=== PATIENT | female | born 1945 | race Caucasian/White ===

== ENCOUNTER 2021-04-03 16:33 | Emergency (ER) | payer BC, MEDICARE, SELFPAY ==
[2021-04-03] VITALS (7 sets, daily range): BP systolic 40–133; BP diastolic 32–67; PULSE 27–106; RESP 0–21; TEMP 36.6; O2SAT 29–99
--- NOTE | ~2021-04-03 | XR_ITS ---
XR chest 1V portable 04/03/2021 17:29 Indication: Stage IV breast cancer. Low oxygen saturation. Altered mental status. Procedure: AP portable chest Comparison: No prior studies for comparison. Findings: There are multiple left lung masses, consistent with metastatic disease. There is elevated right diaphragm. There is bilateral airspace disease which may represent pneumonia or edema. Portacat heter tip in the SVC. Small pleural effusions. Impression: 1: Diffuse bilateral airspace disease which may represent pneumonia or edema. 2: Metastatic disease, presumably secondary to known breast cancer. 3: Small pleural effusions. Elevated right diaphragm. Reviewed, dictated and finalized at location A. Impression: 1: Diffuse bilateral airspace disease which may represent pneumonia or edema. 2: Metastatic disease, presumably secondary to known breast cancer. 3: Small pleural effusions. Elevated right diaphragm.
--- NOTE | 2021-04-03 16:59 | ECG_ITS ---
Measurements Intervals [place] Rate: 104 P: 31 [place]: 136 QRS: 56 QRSD: 88 T: 32 QT: 333 QTc: 440 Interpretive Statements SINUS TACHYCARDIA LOW QRS VOLTAGE IN LIMB LEADS BORDERLINE ST ABNORMALITY- ANT/INF LEADS BORDERLINE ECG Electronically Signed On 04-04-2021 6:22:22 CDT by Will Snider D.O.
[2021-04-03] MEDS: SODIUM CHLORIDE 0.9% IV 1,000 ML 999 ML IV CONT (18:26)
--- NOTE | 2021-04-03 18:54 | ED.AMS ---
HPI - Altered Mental Status General Chief Complaint: Altered Mental Status Stated Complaint: AMS Time Seen by Provider: 04/03/21 16:49 History of Present Illness HPI narrative: Patient is a 75-year-old female who presents ER after her realize she had not gotten up out of bed today. He reports that she has not been eating or doing anything for the last 3 days. Patient found to be hypoxic by EMS and placed on oxygen. The patient is alert and oriented she cannot give any history about what has been occurring or how she feels. She does report that she receives her care through [facility] in [place]. Patient has been suffering from metastatic breast cancer for the last 4 to 5 years and is on palliative chemotherapy. Related Data Allergies Allergy/AdvReac Type Severity Reaction Status Date / Time No Known Allergies Allergy Verified 04/03/21 18:53 Review of Systems Review of Systems: ROS unobtainable: Yes unobtainable due to medical condition PMFSH Past Medical History Medical History (Updated 04/03/21 @ 20:25 by Ino Puckett MD) Breast cancer History of hypertension Surgical History Surgical History (Updated 04/03/21 @ 20:23 by Ino Puckett MD) Port-A-Cath in place Exam Narrative: GENERAL: Chronically ill-appearing, well-nourished, and in mild distress. HEAD: Normocephalic, atraumatic. EYES: PERRL and EOMI. ENT: Dry mucous membranes. CHEST: Clear to auscultation. No respiratory distress. Large cavitation left chest wall superior to the breast without erythema or drainage. Packing present. HEART: Regular rate and rhythm. Normal peripheral pulses. ABDOMEN: Soft, nontender, nondistended. EXTREMITIES: Normal range of motion. No edema. SKIN: Warm, dry, no rash. NEURO: Slurred speech somnolent however alert and oriented x3. Course Reevaluation(s) Reevaluation #1: Patient status declining. She is no longer awake or alert and she is minimally responsive to sternal rub. Breathing is apneic. I have had a discussion with the patient's son, spouse, and [id number]. The decision has been made to transition the patient to comfort focused therapy and they are aware that patient will likely have rapid deterioration afterwards. Patient will be given some morphine to help with air hunger at this time. Date: 04/03/21 Time: 18:55 Reevaluation #2: Patient pronounced as having at 1953. Family at bedside. Will contact PCP. Date: 04/03/21 Time: 20:13 Reevaluation #3: Contacted the physician national sales associate for Dr. Barber, they will sign the certificate. Date: 04/03/21 Time: 21:04 Vital Signs Vital signs: Vital Signs Temperature 97.8 F 04/03/21 17:04 Pulse Rate 106 H 04/03/21 17:04 Respiratory Rate 21 H 04/03/21 17:04 Blood Pressure 118/67 04/03/21 17:04 Pulse Oximetry 76 L 04/03/21 17:04 Temperature 97.8 F 04/03/21 17:04 Pulse Rate 27 L 04/03/21 19:46 Respiratory Rate 8 L 04/03/21 19:46 Blood Pressure 40/32 L 04/03/21 19:46 Pulse Oximetry 29 L 04/03/21 19:25 MDM - Altered Mental Status Imaging Data Radiologist's impression: ITS Impressions Chest X-Ray 04/03/21 17:32 Impression: 1: Diffuse bilateral airspace disease which may represent pneumonia or edema. 2: Metastatic disease, presumably secondary to known breast cancer. 3: Small pleural effusions. Elevated right diaphragm. Critical Care Time Critical Care Time Critical Care Time: Yes Total Critical Care Time: 35 Discharge Plan Discharge Clinical Impression: Pneumonia, Acute respiratory failure, Breast cancer Patient Disposition: Condition: Follow-up/Referrals: Elisabeth,Radha Urena MD [Primary Care Provider] -
--- NOTE | 2021-04-03 18:56 | PC.NURSE ---
Pt becoming more unresponsive. Pt decided to place pt on hospice. Son, daughter in law and at beside.
[2021-04-03] MEDS: MORPHINE SULFATE (*CRX) 4 MG/ML INJ IV PUSH ×2 (19:04→19:20)
--- NOTE | 2021-04-03 19:18 | PC.NURSE ---
Pt taken off off non rebreather at this time. Placed on NC at 8L
--- NOTE | 2021-04-03 19:25 | PC.NURSE ---
[birth year]24: BRANDIE Puckett. 4 mg of Morphine IV
--- NOTE | 2021-04-03 19:32 | PC.NURSE ---
pt suctioned by EDP
--- NOTE | 2021-04-03 19:33 | PC.NURSE ---
VORB 4mg of IV morphine given per EDP [place]. oxygen turned off.
--- NOTE | 2021-04-03 19:36 | PC.NURSE ---
VORB 4mg of IV morphine given per EDP
--- NOTE | 2021-04-03 19:41 | PC.NURSE ---
VORB 2mg IV of Ativan given per TERESE Puckett.
--- NOTE | 2021-04-03 19:56 | PC.NURSE ---
Dr. Puckett declared time of 1952
== END 2021-04-03 21:00 | disposition expired ==
PROVIDERS: Emergency Provider Emergency Medicine; PCP Internal Medicine
DX: J18.9 Pneumonia, unspecified organism (principal); J96.00 Acute respiratory failure, unspecified whether with hypoxia or hypercapnia; C50.919 Malignant neoplasm of unspecified site of unspecified female breast; I10 Essential (primary) hypertension; Z92.21 Personal history of antineoplastic chemotherapy
CPT/HCPCS: 71045; 93005; 96374; 99284; J2060; J2270; J7030